=== PATIENT | male | born 1955 | race Caucasian/White ===

== ENCOUNTER 2020-08-08 06:16 | Outpatient (CLI) | payer BC ==
[2020-08-08 18:39] LABS: #Basophils 0.1 10x3/uL (0.0-0.2); #Eosinphils 0.1 10x3/uL (0.0-0.5); #Monocytes 0.7 10x3/uL (0.0-1.1); #Neutrophils 4.9 10x3/uL (1.5-8.4); %Basophils 0.9 % (0.0-2.0); %Eosinophils 0.9 % (0.0-6.0); %Lymphocytes 18.2 % (18.0-47.0); %Monocytes 9.7 % (0.0-10.0); Hemoglobin 15.3 g/dL (14.0-18.0); Mean Corpuscular HGB CONC 33.3 G/DL (32.0-36.0); Mean Corpuscular Hemoglobin 30.5 PG (27.0-33.0); Mean Corpuscular Volume 91.4 fl (80.0-100.0); Mean Platelet Volume 10.4 fl (7.4-10.4); Platelet Count 251 10x3/uL (130-400); RBC Distribution Width 12.1 % (11.5-14.5); Red Blood Cell (RBC) Count 5.02 10x6/uL (4.40-5.80); White Blood Cell (WBC) Count 6.9 10x3/uL (4.5-11.0)
[2020-08-08 18:48] LABS: Anion Gap 16 mmol/L (10-20); BUN (Urea Nitrogen) 18 mg/dL (8.4-25.7); Calc. Creatinine Clearance 0 mL/min (70-130); Calcium 9.5 mg/dL (7.8-10.44); Carbon Dioxide 25 mmol/L (23-31); Chloride 103 mmol/L (98-107); Estimated GFR-MDRD 57; Glucose 109 mg/dL (80-115); Potassium 4.6 mmol/L (3.5-5.1); Sodium 139 mmol/L (136-145)
[2020-08-08 18:49] LABS: INR-International Normal Ratio 1.3; PTT 36.6 sec (22.0-33.0); Prothrombin Time 13.2 sec (9.5-12.1)
[2020-08-10 12:09] LABS: SARS-CoV-2 MS2 Positive; SARS-CoV-2 N Gene Negative; SARS-CoV-2 S Gene Negative; SARS-CoV-2 by NAA Not Detected (NotDetected); SARS-CoV-2 orf1ab Negative
--- NOTE | 2020-08-13 06:58 | EKG ---
Test Reason : Blood Pressure : / mmHG Vent. Rate : 071 BPM Atrial Rate : 071 BPM P-R Int : 204 ms QRS Dur : 112 ms QT Int : 412 ms P-R-T Axes : 043 002 012 degrees QTc Int : 447 ms Normal sinus rhythm Normal ECG When compared with ECG of 17-MAY-2020 08:47, Sinus rhythm has replaced Atrial flutter Confirmed by ZEENAT CHOW MD ([id number]) on 08/13/2020 6:57:36 AM Referred By: [facility] Confirmed By:ZEENAT CHOW MD
== END 2020-08-08 06:17 | disposition home or self-care (01) ==
LOC: LABBT 06:16
PROVIDERS: ATTEND Internal Medicine Cardiovascular Disease
DX: Z01.812 Encounter for preprocedural laboratory examination (principal); Z20.828 Contact with and (suspected) exposure to other viral communicable diseases; I48.91 Unspecified atrial fibrillation
CPT/HCPCS: 80048; 85025; 85610; 85730; 87635; 93005; 93010; U0003

== ENCOUNTER 2020-08-13 06:07 | Observation (INO) | payer BC ==
[2020-08-13] MEDS ORDERED: Heparin 25,000 units/D5W 500 ML ONE (06:44)
[2020-08-13] MEDS ORDERED: Heparin 10,000 UNITS/ 10 ML VIAL ONE (06:44)
[2020-08-13] MEDS ORDERED: Midazolam HCl 2 mg/2 ml Vial ONE (06:52)
[2020-08-13] MEDS ORDERED: Fentanyl 100 MCG/2 ML VIAL ONE (06:52)
[2020-08-13] MEDS ORDERED: Phenylephrine 10 MG/ML VIAL ONE (08:30)
[2020-08-13] MEDS ORDERED: Isoproterenol 0.2 MG/1 ML AMP ONE (10:32)
[2020-08-13] MEDS ORDERED: Protamine Sulfate 50 MG/5 ML VIAL ONE (10:40)
[2020-08-13] MEDS ORDERED: Dexamethasone 20 MG/5 ML VIAL ONE (11:05)
[2020-08-13] MEDS ORDERED: PROPOFOL 200 MG/20 ML VIAL ONE (11:05)
[2020-08-13] MEDS ORDERED: Rocuronium Bromide 10 MG/ML (10ML VIAL) ONE (11:05)
[2020-08-13] MEDS ORDERED: PHENYLEPHRINE-NS 100 MCG/ML 10 ML SYRINGE ONE (11:05)
[2020-08-13] MEDS ORDERED: Vecuronium 10 MG VIAL ONE (11:05)
[2020-08-13] MEDS ORDERED: Glycopyrrolate 0.2 MG/ML 5 ML SYRINGE ONE (11:05)
[2020-08-13] MEDS ORDERED: ePHEDrine 50 MG/ML VIAL ONE (11:05)
[2020-08-13] MEDS ORDERED: Ondansetron PF 4 MG/2 ML Vial ONE (11:05)
[2020-08-13] MEDS ORDERED: Lidocaine 1% PF 5 ML VIAL ONE (11:05)
[2020-08-13] MEDS ORDERED: Promethazine HCl 25 MG/ML VIAL SLOW IVP PRN (11:36)
[2020-08-13] MEDS ORDERED: Ondansetron HCl/PF 4 MG/2 ML Vial IVP PRN (11:36)
[2020-08-13] MEDS ORDERED: Promethazine HCl 25 MG/ML VIAL IM PRN (11:36)
[2020-08-13] MEDS ORDERED: Ketorolac Tromethamine 30 MG/ML VIAL IVP PRN (11:59)
[2020-08-13 13:30] VITALS: BMI 27.2
[2020-08-13] MEDS: Sucralfate 1 GM TAB PO SCH ×3 (14:04→23:12)
--- NOTE | 2020-08-13 17:03 | OP ---
DATE OF PROCEDURE: 08/13/2020 PROCEDURE PERFORMED: Electrophysiology study and radiofrequency ablation. REASON FOR PROCEDURE: Mr. Dickey is a 65-year-old man with history of paroxysmal atrial fibrillation, suboptimal suppression with flecainide and on chronic anticoagulation, here for a pulmonary venous isolation procedure. DESCRIPTION OF PROCEDURE: The patient received general anesthesia by Anesthesia specialist. Left and right femoral vein were prepped and draped and accessed under ultrasound guidance with a multipurpose needle. On the left side, an 11 and 8-Japanese sheaths were introduced to advance an intracardiac echocardiogram probe to the right atrium, which was used there to monitor transseptal puncture, pericardial space, and catheter manipulation throughout the procedure. Also from the left femoral vein, a DecaNav catheter was advanced to the right atrium. 3D map of the right atrium, His bundle, and CS positions were obtained. The duodeca catheter was placed in the CS where it was used to pacing and mapping the left atrium. From the right femoral vein, two 8-Japanese short sheaths were introduced through which were later exchanged to two SL1 transseptal sheath. IV heparin was administered at this point with a bolus and drip fashion and ACTs were checked and adjusted to keep ACT over 350. Following that, the transseptal puncture was performed under intracardiac echo and fluoroscopic monitoring with the help of powered [place] transseptal needle. Through the SL1 sheath, then a ThermoCool SFST catheter and a Lasso catheter were advanced to the left atrium, where it was used to obtain 3D map of the left atrium. Two separate pulmonary veins were seen in each side, although the left side has had a common takeoff with the aortic bifurcation. An esophageal probe was used to monitor the esophageal temperature throughout the posterior wall mason. Standard pulmonary venous isolation procedure was performed for the roof line and inferior line was drawn to isolate the posterior wall. The atrial fibrillation at baseline converted back to sinus rhythm during the ablation. Additional PACs were figured out from the ligament of Laith, distal CS area, and ablation was performed at this point as well. Mild left atrial scarring was noted and mild left atrial enlargement seen. At this point, Isuprel was administered at 20 mcg and any reconnections re- ablated. So, a suboptimal posterior wall isolation was seen partially due to conduction through areas adjacent to the esophagus to avoid excessive heating. A standard EP study was also performed with the following findings. Rhythm at this point was sinus rhythm, cycle length 930 msec. ND 180 msec, QRS 84 msec, QT 401 msec, AH 82 msec, HV 57 msec. The AV node function was normal. Retrograde Wenckebach cycle length was 380 msec. Antegrade Wenckebach cycle length 370 msec. The AV felicia ERP was 500/200 msec. The burst atrial pacing at 200 msec did induce atrial fibrillation, which was then cardioverted. The catheter was removed from the left side. IV heparin was stopped and then the effect was reversed with protamine administration. The cardiac silhouette did not change throughout the procedure and the intracardiac echocardiogram probe revealed no change in the baseline of small pericardial effusion. The long transseptal sheaths were exchanged to an 8-Japanese short sheath and Vascade closure was performed in all 4 femoral venous access sites. Total radiofrequency lesions delivered were 93 at 40 flores. Total duration was 27 minutes and 36 seconds. CONCLUSION: 1. Atrial fibrillation at baseline. 2. Successful 4 vein pulmonary venous isolation performed. 3. Posterior wall isolation also performed with minor residual leak at the esophageal area. 4. Additional PAC ablation at the base of the left atrium appendage was performed. 5. Normal sinus AV felicia function. 6. No evidence of accessory pathway with left ventricular pacing through the ablation catheter. 7. No dual AV node physiology present and no SVT inducible. 8. Concentric retrograde VA conduction is seen. PLAN: Continue monitoring for recurrent arrhythmias. Continue oral anticoagulation. Job ID: [id number] [facility]
[2020-08-14] MEDS: Sucralfate 1 GM TAB PO SCH (04:47)
[2020-08-14 08:00] VITALS: BP 116/67; TEMP 97.8
[2020-08-14] MEDS ORDERED: Rivaroxaban 10 MG TAB PO SCH (09:00)
[2020-08-14] MEDS ORDERED: MAGNESIUM PO SCH (09:00)
--- NOTE | 2020-08-15 09:40 | EKG ---
Test Reason : POST ABLATION Blood Pressure : / mmHG Vent. Rate : 083 BPM Atrial Rate : 083 BPM P-R Int : 178 ms QRS Dur : 096 ms QT Int : 398 ms P-R-T Axes : 059 023 020 degrees QTc Int : 467 ms Sinus rhythm with Premature atrial complexes Nonspecific T wave abnormality Prolonged QT Abnormal ECG Confirmed by ZEENAT CHOW MD ([id number]) on 08/15/2020 9:39:53 AM Referred By: [facility] Confirmed By:ZEENAT CHOW MD
== END 2020-08-14 10:26 | disposition home or self-care (01) ==
LOC: CCL 06:07 → 2NO 13:27
PROVIDERS: ADMIT Internal Medicine Cardiovascular Disease; ATTEND Internal Medicine Cardiovascular Disease
PROC: 02583ZZ Destruction of Conduction Mechanism, Percutaneous Approach (ICD-10-PCS; principal; 2020-08-13)
PROC: 4A023FZ Measurement of Cardiac Rhythm, Percutaneous Approach (ICD-10-PCS; 2020-08-13)
PROC: 4A0234Z Measurement of Cardiac Electrical Activity, Percutaneous Approach (ICD-10-PCS; 2020-08-13)
PROC: 02K83ZZ Map Conduction Mechanism, Percutaneous Approach (ICD-10-PCS; 2020-08-13)
DX: I48.0 Paroxysmal atrial fibrillation (principal); I48.3 Typical atrial flutter; F17.290 Nicotine dependence, other tobacco product, uncomplicated; Z79.01 Long term (current) use of anticoagulants; Z79.899 Other long term (current) drug therapy
CPT/HCPCS: 76942; 85347; 92960; 93005; 93010; 93613; 93622; 93623; 93655; 93656; 93662; C1732; C1759; J1100; J1644; J1885; J2250; J2370; J2405; J2704; J2720; J3010; J3490

== ENCOUNTER 2020-09-10 13:31 | Emergency (ER) | payer BC ==
[2020-09-10 17:58] LABS: SARS-CoV-2 MS2 Positive; SARS-CoV-2 N Gene Positive; SARS-CoV-2 S Gene Positive; SARS-CoV-2 by NAA DETECTED (NotDetected); SARS-CoV-2 orf1ab Positive
== END 2020-09-10 14:24 | disposition home or self-care (01) ==
LOC: ERS 13:31
DX: U07.1 COVID-19 (principal)
CPT/HCPCS: 87635; 99283; U0003

== ENCOUNTER 2022-07-02 09:40 | Emergency (ER) | payer BC ==
[2022-07-02 10:23] LABS: #Eosinphils 0.2 thou/uL (0.0-0.7); #Monocytes 0.6 thou/uL (0.11-0.59); #Neutrophils 6.8 thou/uL (1.40-6.50); %Basophils 0.3 % (0.0-1.0); %Eosinophils 2.2 % (0.0-10.0); %Lymphocytes 11.4 % (21.0-51.0); %Monocytes 7.4 % (0.0-10.0); %Neutrophils 78.7 % (42.0-75.0); Hemoglobin 14.7 g/dL (14.0-18.0); Mean Corpuscular HGB CONC 32.9 g/dL (32.0-36.0); Mean Corpuscular Hemoglobin 30.9 pg (27.0-31.0); Mean Corpuscular Volume 93.9 fL (78.0-98.0); Mean Platelet Volume 7.9 fL (7.4-10.4); Platelet Count 196 thou/uL (130-400); RBC Distribution Width 11.2 % (11.5-14.5); Red Blood Cell (RBC) Count 4.78 mill/uL (4.70-6.10); White Blood Cell (WBC) Count 8.6 thou/uL (4.8-10.8)
[2022-07-02 10:41] LABS: ALT (SGPT) 20 U/L (8-55); AST (SGOT) 27 U/L (5-34); Alkaline Phosphatase 63 U/L (40-110); Anion Gap 14 mmol/L (10-20); BUN (Urea Nitrogen) 21 mg/dL (8.4-25.7); Bilirubin, Total 0.8 mg/dL (0.2-1.2); Calc. Creatinine Clearance 0 mL/min (70-130); Calcium 9.2 mg/dL (7.8-10.44); Carbon Dioxide 19 mmol/L (23-31); Chloride 104 mmol/L (98-107); Estimated GFR 62; Globulin 2.8 g/dL (2.4-3.5); Glucose 206 mg/dL (80-115); Potassium 4.3 mmol/L (3.5-5.1); Protein, Total 6.8 g/dL (5.8-8.1); Sodium 133 mmol/L (136-145)
[2022-07-02 11:19] LABS: CKMB 1.7 ng/mL (0-6.6)
[2022-07-02 12:40] LABS: Magnesium 1.9 mg/dL (1.6-2.6)
[2022-07-02] MEDS ORDERED: TICAGRELOR 90 MG TABLET PO SCH (13:30)
== END 2022-07-02 13:38 | disposition home or self-care (01) ==
LOC: ERS 09:40
DX: R07.9 Chest pain, unspecified (principal); R42 Dizziness and giddiness; R53.1 Weakness; F17.220 Nicotine dependence, chewing tobacco, uncomplicated
CPT/HCPCS: 36415; 71045; 80053; 82553; 83735; 84484; 85025; 93005

== ENCOUNTER 2022-09-13 12:43 | Emergency (ER) | payer BC ==
[2022-09-13 13:16] LABS: #Eosinphils 0.1 thou/uL (0.0-0.7); #Lymphocytes 0.8 thou/uL (1.20-3.40); #Monocytes 0.4 thou/uL (0.11-0.59); #Neutrophils 5.6 thou/uL (1.40-6.50); %Basophils 0.3 % (0.0-1.0); %Eosinophils 1.5 % (0.0-10.0); %Monocytes 6.1 % (0.0-10.0); %Neutrophils 80.2 % (42.0-75.0); Hemoglobin 14.9 g/dL (14.0-18.0); Mean Corpuscular HGB CONC 32.8 g/dL (32.0-36.0); Mean Corpuscular Hemoglobin 31.4 pg (27.0-31.0); Mean Corpuscular Volume 95.7 fl (78.0-98.0); Mean Platelet Volume 8.3 fL (7.4-10.4); Platelet Count 193 10x3/uL (130-400); RBC Distribution Width 11.1 % (11.5-14.5); Red Blood Cell (RBC) Count 4.73 mill/uL (4.70-6.10); White Blood Cell (WBC) Count 6.9 10x3/uL (4.8-10.8)
[2022-09-13 13:41] LABS: ALT (SGPT) 37 U/L (8-55); AST (SGOT) 28 U/L (5-34); Albumin 4.2 g/dL (3.4-4.8); Alkaline Phosphatase 74 U/L (40-110); Anion Gap 13 mmol/L (10-20); BUN (Urea Nitrogen) 12 mg/dL (8.4-25.7); Bilirubin, Total 0.8 mg/dL (0.2-1.2); Calc. Creatinine Clearance 0 mL/min (70-130); Calcium 9.4 mg/dL (7.8-10.44); Carbon Dioxide 24 mmol/L (23-31); Chloride 102 mmol/L (98-107); Estimated GFR 71; Globulin 2.8 g/dL (2.4-3.5); Glucose 187 mg/dL (80-115); Magnesium 1.7 mg/dL (1.6-2.6); Sodium 135 mmol/L (136-145)
== END 2022-09-13 15:33 | disposition left against medical advice (07) ==
LOC: ERS 12:43
DX: R00.0 Tachycardia, unspecified (principal); I48.91 Unspecified atrial fibrillation; Z53.29 Procedure and treatment not carried out because of patient's decision for other reasons
CPT/HCPCS: 36415; 71045; 80053; 83735; 84484; 85025; 93005; 94760

== ENCOUNTER 2023-08-02 08:59 | Outpatient (CLI) | payer OTHER | END 2023-08-02 09:00 | disposition home or self-care (01) | LOC: ULT 08:59 | PROVIDERS: ATTEND Internal Medicine | DX: Z13.6 Encounter for screening for cardiovascular disorders (principal) | CPT/HCPCS: 76706 ==